=== PATIENT | female | born 1990 | race Caucasian/White ===

== ENCOUNTER 2016-08-08 17:11 | Emergency (ER) | payer MEDICAID, OTHER ==
[2016-08-08 17:11] VITALS: BMI 36.1
[2016-08-08 17:37] VITALS: RESP 20; O2SAT 100
[2016-08-08] MEDS ORDERED: Sodium Chloride 0.9% 1,000 ML IV ONE (19:06)
[2016-08-08] MEDS ORDERED: Sodium Chloride 0.9% 1,000 ML ONE (19:23)
[2016-08-08 19:25] LABS: RBC URINE 1223 /hpf (0-3); URINE BACTERIA RARE (<OCC); URINE BILIRUBIN NEGATIVE (NEGATIVE); URINE BLOOD 3+ (NEGATIVE); URINE COLOR Yellow (YELLOW); URINE GLUCOSE (UA) NORMAL (Normal); URINE KETONE NEGATIVE (NEGATIVE); URINE LEUKOCYTE ESTERASE NEG Leu/uL (Negative); URINE PROTEIN 1+ mg/dL (NEGATIVE); URINE UROBILINOGEN NORMAL mg/dL (0.2-1.0); WBC URINE 4 /hpf (0-5)
[2016-08-08 19:25] LABS: BASO % 0.4 % (0.0-2.0); EOS # 0.1 K/uL (0.0-0.7); EOS % 0.9 % (0.0-4.0); HEMATOCRIT 30.2 % (34.0-47.0); LYMPH # 2.1 K/uL (1.0-4.3); LYMPH % 30.7 % (20.0-40.0); MEAN CELL VOLUME 71.2 fL (81.0-99.0); MEAN CORPUSCULAR HEMOGLOBIN 22.4 pg (27.0-31.0); MEAN CORPUSCULAR HGB CONC 31.5 g/dL (33.0-37.0); MEAN PLATELET VOLUME 8.5 fL (7.2-11.7); MONO # 0.3 K/uL (0.0-0.8); MONO % 4.2 % (0.0-10.0); RED CELL DISTRIBUTION WIDTH 17.3 % (11.5-14.5); WHITE BLOOD COUNT 6.9 K/uL (4.8-10.8)
[2016-08-08 19:32] LABS: CHLORIDE 100 mmol/L (98-107)
[2016-08-08 19:33] LABS: POTASSIUM 3.6 mmol/L (3.6-5.2); SODIUM 137 mmol/L (132-148)
[2016-08-08 19:35] LABS: GFR AFRICAN-AMERICAN > 60
[2016-08-08 19:36] LABS: ALKALINE PHOSPHATASE 69 U/L (38-126); ALT/SGPT 19 U/L (9-52); AST/SGOT 18 U/L (14-36); BILIRUBIN,TOTAL 0.5 mg/dL (0.2-1.3); BLOOD UREA NITROGEN 11 mg/dL (7-17); CALCIUM 8.7 mg/dl (8.6-10.4); CARBON DIOXIDE 26 mmol/L (22-30); GLUCOSE,RANDOM 95 mg/dL (65-105); TOTAL PROTEIN 8.1 g/dL (6.3-8.3)
--- NOTE | 2016-08-08 20:13 | C.PDOC ---
Time Seen by Provider: 08/08/16 18:49 Chief Complaint (Nursing): Abdominal Pain History Per: Patient Onset/Duration Of Symptoms: Days (3) Current Symptoms Are (Timing): Still Present Severity: Moderate Location Of Pain/Discomfort: Epigastric Radiation Of Pain To:: None Quality Of Discomfort: Unable To Describe, "Pain" Associated Symptoms: Nausea Exacerbating Factors: Food Alleviating Factors: None Last Bowel Movement: Yesterday Additional History Per: Prior Records Past Medical History Reviewed: Historical Data, Nursing Documentation, Vital Signs Vital Signs: Last Vital Signs Temp 98.5 F 08/08/16 17:32 Pulse 96 H 08/08/16 17:32 Resp 20 08/08/16 17:32 BP 116/79 08/08/16 17:32 Pulse Ox 100 08/08/16 17:32 - Medical History PMH: Anemia Other PMH: H. Pylori Surgical History: No Surg Hx Family History: States: Unknown Family Hx - Social History Hx Alcohol Use: No Hx Substance Use: No - Immunization History Hx Tetanus Toxoid Vaccination: No Hx Influenza Vaccination: Yes Hx Pneumococcal Vaccination: No Review Of Systems Except As Marked, All Systems Reviewed And Found Negative. Constitutional: Negative for: Fever, Weakness Cardiovascular: Negative for: Chest Pain Respiratory: Negative for: Shortness of Breath Gastrointestinal: Positive for: Nausea, Abdominal Pain. Negative for: Vomiting , Melena, Hematochezia, Hematemesis Genitourinary: Positive for: Vaginal Bleeding (Pt is currently having her menstrual period) Musculoskeletal: Negative for: Neck Pain, Back Pain Skin: Negative for: Rash Neurological: Positive for: Headache. Negative for: Weakness, Numbness, Seizures, Altered Mental Status Physical Exam - Physical Exam Appears: Non-toxic, No Acute Distress Skin: Normal Color, Warm, Dry, No Rash Head: Atraumatic, Normacephalic Eye(s): bilateral: PERRL, EOMI Oral Mucosa: Moist Neck: Normal ROM, Supple Cardiovascular: Rhythm Regular Respiratory: Normal Breath Sounds, No Accessory Muscle Use Gastrointestinal/Abdominal: Soft, Tenderness (mild epigastric), No Distention, No Guarding, No Rebound Back: No CVA Tenderness Extremity: Normal ROM Neurological/Psych: Oriented x3, Normal Motor, Normal Sensation ED Course And Treatment - Laboratory Results Result Diagrams: 08/08/16 19:21 08/08/16 19:21 Lab Interpretation: No Acute Changes Urine POC: Negative O2 Sat by Pulse Oximetry: 100 Pulse Ox Interpretation: Normal Progress - Interventions Interventions:: Observation, Intravenous fluid - Medications Administered Intravenous: Antiemetic, H-2 mark - Data Reviewed Data Reviewed: Lab, Old records - Patient Status Patient status: Mostly improved - Continuity of Care Discussed patient case with:: Patient, ED Nurse - Patient Plan Patient Plan: Discharge, F/U with PCP, Continue present meds Disposition Counseled Patient/Family Regarding: Studies Performed, Diagnosis, Need For Followup, Rx Given - Disposition Referrals: Miranda Paulino [Staff Provider] - Disposition: HOME/ ROUTINE Disposition Time: 20:18 Condition: IMPROVED Additional Instructions: Follow up with your doctor for further evaluation and treatment. Return to the ER if you develop vomiting, fever, bloody or black stools, worsening of symptoms or if you have any other concerns. Prescriptions: Metoclopramide [Reglan] 5 mg PO TID PRN #30 tab PRN Reason: Nausea/Vomiting Instructions: Gastritis (ED) Print Language: YEMENI - Clinical Impression Clinical Impression: Epigastric abdominal pain
[2016-08-08 20:45] VITALS: BP 100/67; PULSE 71; TEMP 98.4
== END 2016-08-08 20:45 | disposition home or self-care (01) ==
LOC: C.ER 17:11
DX: R10.13 Epigastric pain (principal)
CPT/HCPCS: 80053; 81001; 83690; 84703; 85025; 96361; 96374; 96375; 99284; J2765; J7040

== ENCOUNTER 2016-08-19 09:54 | Emergency (ER) | payer MEDICAID ==
[2016-08-19 09:55] VITALS: BMI 36.1
[2016-08-19 10:00] VITALS: O2SAT 100
--- NOTE | 2016-08-19 10:09 | C.PDOC ---
History Of Present Illness 26 y/o female presents to ED with complaints of constant epigastric abdominal pain and nausea for 2 days . Patient states recently seen by GI who diagnosed her with H.Pylori and was given antibiotics (Flagyl and Clarithromycin). Antibiotics have given rise to loose stool according to patient. Patient has taking Omeprazole, but no relief. Patient denies fever, blood in stool or urinary symptoms. No other complaints at this time. Time Seen by Provider: 08/19/16 10:15 Chief Complaint (Nursing): GI Problem History Per: Patient History/Exam Limitations: no limitations Onset/Duration Of Symptoms: Days Current Symptoms Are (Timing): Still Present Past Medical History Reviewed: Historical Data, Nursing Documentation, Vital Signs Vital Signs: Last Vital Signs Temp 97.9 F 08/19/16 11:40 Pulse 82 08/19/16 11:40 Resp 18 08/19/16 11:40 BP 106/67 08/19/16 11:40 Pulse Ox 100 08/19/16 11:40 - Medical History PMH: Anemia, Gastritis Family History: States: Unknown Family Hx - Social History Hx Alcohol Use: No Hx Substance Use: No - Immunization History Hx Tetanus Toxoid Vaccination: No Hx Influenza Vaccination: Yes Hx Pneumococcal Vaccination: No Review Of Systems Constitutional: Negative for: Fever, Chills Cardiovascular: Negative for: Chest Pain Gastrointestinal: Positive for: Nausea, Abdominal Pain. Negative for: Vomiting , Diarrhea Genitourinary: Negative for: Dysuria Neurological: Negative for: Weakness Physical Exam - Physical Exam Appears: Non-toxic, No Acute Distress Skin: Normal Color, Warm Head: Atraumatic, Normacephalic Eye(s): bilateral: Normal Inspection, EOMI Oral Mucosa: Moist Neck: Normal ROM Chest: Symmetrical Cardiovascular: Rhythm Regular Respiratory: Normal Breath Sounds, No Rales, No Rhonchi, No Wheezing Gastrointestinal/Abdominal: Bowel Sounds (active), Soft, Tenderness (Epigastric tenderness), No Mass, No Distention, No Guarding, No Rebound Back: Normal Inspection, No CVA Tenderness Extremity: Normal ROM Neurological/Psych: Oriented x3, Normal Speech Gait: Steady ED Course And Treatment - Laboratory Results Result Diagrams: 08/19/16 10:40 08/19/16 10:40 Lab Interpretation: No Changes Compared To Prior Results O2 Sat by Pulse Oximetry: 100 (Room air ) Pulse Ox Interpretation: Normal Medical Decision Making Medical Decision Making: Impression: epigastric abdominal pain likely gastritis from H.pylori, patient currently on antibiotics Plan: * Labs * IV NS Prior record reviewed, patient recently seen 08/08/16 for abdominal pain with normal labwork and discharged home. Progress: Labs reviewed with no acute changes seen from prior visit Upon reevaluation patient reports pain has much improved. Discuss with patient dietary changes and can give new Rx Recommend follow up with GI next week Disposition Counseled Patient/Family Regarding: Diagnosis, Need For Followup, Rx Given - Disposition Referrals: Steven Navarro MD [Medical Doctor] - Disposition: HOME/ ROUTINE Disposition Time: 11:45 Condition: GOOD Additional Instructions: Contine con antibiticos y tome medicamentos para el dolor segn sea necesario Realice un seguimiento con bird mariano Navarro para tim evaluacin posterior Prescriptions: Dicyclomine [Bentyl] 10 mg PO QID #20 cap Instructions: Helicobacter Pylori (ED) Print Language: YEMENI - POA Present On Arrival: None - Clinical Impression Clinical Impression: Epigastric abdominal pain, H. 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 - Scribe Statement The provider has reviewed the documentation as recorded by the Cecilia Ni All medical record entries made by the Cecilia were at my direction and personally dictated by me. I have reviewed the chart and agree that the record accurately reflects my personal performance of the history, physical exam, medical decision making, and the department course for this patient. I have also personally directed, reviewed, and agree with the discharge instructions and disposition.
[2016-08-19] MEDS ORDERED: Sodium Chloride 0.9% 1,000 ML IV ONE (10:23)
[2016-08-19] MEDS ORDERED: Sodium Chloride 0.9% 1,000 ML ONE (10:32)
[2016-08-19 10:47] LABS: BASO % 0.6 % (0.0-2.0); EOS # 0.1 K/uL (0.0-0.7); EOS % 1.9 % (0.0-4.0); HEMATOCRIT 30.4 % (34.0-47.0); LYMPH # 1.3 K/uL (1.0-4.3); LYMPH % 24.5 % (20.0-40.0); MEAN CELL VOLUME 70.9 fL (81.0-99.0); MEAN CORPUSCULAR HEMOGLOBIN 22.2 pg (27.0-31.0); MEAN CORPUSCULAR HGB CONC 31.3 g/dL (33.0-37.0); MEAN PLATELET VOLUME 8.8 fL (7.2-11.7); MONO # 0.3 K/uL (0.0-0.8); MONO % 5.6 % (0.0-10.0); NRBC % 0.1 % (0.0-2.0); RED CELL DISTRIBUTION WIDTH 16.7 % (11.5-14.5); WHITE BLOOD COUNT 5.3 K/uL (4.8-10.8)
[2016-08-19 10:56] LABS: CHLORIDE 102 mmol/L (98-107); SODIUM 139 mmol/L (132-148)
[2016-08-19 10:58] LABS: GFR AFRICAN-AMERICAN > 60
[2016-08-19 10:59] LABS: ALKALINE PHOSPHATASE 63 U/L (38-126); ALT/SGPT 19 U/L (9-52); AST/SGOT 19 U/L (14-36); BILIRUBIN,TOTAL 0.5 mg/dL (0.2-1.3); BLOOD UREA NITROGEN 8 mg/dL (7-17); CALCIUM 8.3 mg/dl (8.6-10.4); CARBON DIOXIDE 25 mmol/L (22-30); GLUCOSE,RANDOM 90 mg/dL (65-105); RBC URINE 1 /hpf (0-3); TOTAL PROTEIN 7.4 g/dL (6.3-8.3); URINE BILIRUBIN NEGATIVE (NEGATIVE); URINE BLOOD NEGATIVE (NEGATIVE); URINE COLOR Yellow (YELLOW); URINE GLUCOSE (UA) NORMAL (Normal); URINE KETONE NEGATIVE (NEGATIVE); URINE LEUKOCYTE ESTERASE 1+ Leu/uL (Negative); URINE PROTEIN NEGATIVE (NEGATIVE); URINE UROBILINOGEN NORMAL mg/dL (0.2-1.0); WBC URINE 4 /hpf (0-5)
[2016-08-19 11:46] VITALS: BP 106/67; PULSE 82; RESP 18; TEMP 97.9
== END 2016-08-19 11:48 | disposition home or self-care (01) ==
LOC: C.ER 09:54
DX: R10.13 Epigastric pain (principal); B96.81 Helicobacter pylori [H. pylori] as the cause of diseases classified elsewhere
CPT/HCPCS: 80053; 81001; 83690; 85025; 96361; 96374; 96375; 99283; J1885; J2405; J7040

== ENCOUNTER 2017-02-26 21:30 | Emergency (ER) | payer MEDICAID ==
[2017-02-26 21:31] VITALS: BMI 36.1
[2017-02-26 21:42] VITALS: BP 132/68; PULSE 100; TEMP 98.3; O2SAT 100
[2017-02-26] MEDS ORDERED: Apap-Butalbital-Caffeine 325-50-40mg Tab PO STA (22:15)
[2017-02-26] MEDS ORDERED: Apap-Butalbital-Caffeine 325-50-40mg Tab ONE (22:22)
--- NOTE | 2017-02-26 23:23 | CT ---
EXAM: CT Head Without Intravenous Contrast CLINICAL HISTORY: 26 years old, female; Pain; Headache; Headache not specified TECHNIQUE: Axial computed tomography images of the head/brain without intravenous contrast. All CT scans at this facility use one or more dose reduction techniques, viz.: automated exposure control; ma/kV adjustment per patient size (including targeted exams where dose is matched to indication; i.e. head); or iterative reconstruction technique. Coronal and sagittal reformatted images were created and reviewed. COMPARISON: No relevant prior studies available. FINDINGS: Brain: No hemorrhage. No significant white matter disease. No edema. Ventricles: No hydrocephalus. Bones: Skull is intact. Soft tissues: No acute abnormality as visualized. Sinuses: Moderately severe ethmoid/sphenoid sinus disease. Underpneumatized frontal sinus, opacified on the left and. Maxillary sinuses only partially visualized. Mastoid air cells: No mastoid effusion. IMPRESSION: No CT evidence of acute intracranial abnormality. Moderately severe ethmoid/sphenoid sinus disease.
--- NOTE | 2017-02-26 23:36 | C.PDOC ---
History Of Present Illness 26 year old female presents to the ER with a complaint of a frontal headache radiating to the posterior head, neck, and upper back area for the past 4 days. Patient states she has been taking ibuprofen and tylenol with no relief. Denies fever, dizziness, nausea, or vomiting. Time Seen by Provider: 02/26/17 21:48 Chief Complaint (Nursing): Flu-like Symptoms History Per: Patient History/Exam Limitations: no limitations Onset/Duration Of Symptoms: Days Current Symptoms Are (Timing): Still Present Location Of Pain: Headache Sick Contacts (Context): None Associated Symptoms: Neck Pain. denies: Fever, Nausea, Vomiting Recent travel outside of the [place]: No Past Medical History Reviewed: Historical Data, Nursing Documentation, Vital Signs Vital Signs: Last Vital Signs Temp 98.3 F 02/26/17 21:34 Pulse 100 H 02/26/17 21:34 Resp 20 02/26/17 23:43 BP 132/68 02/26/17 21:34 Pulse Ox 100 02/27/17 02:35 - Medical History PMH: Anemia, Gastritis Surgical History: No Surg Hx Family History: States: Unknown Family Hx - Social History Hx Alcohol Use: No Hx Substance Use: No - Immunization History Hx Tetanus Toxoid Vaccination: No Hx Influenza Vaccination: Yes Hx Pneumococcal Vaccination: No Review Of Systems Constitutional: Negative for: Fever, Chills Gastrointestinal: Negative for: Nausea, Vomiting Musculoskeletal: Positive for: Neck Pain, Back Pain Neurological: Positive for: Headache. Negative for: Dizziness Physical Exam - Physical Exam Appears: Non-toxic, No Acute Distress Skin: Normal Color, Warm, Dry Head: Atraumatic, Normacephalic Eye(s): bilateral: Normal Inspection, PERRL, EOMI Oral Mucosa: Moist Throat: Normal, No Erythema Neck: No Midline Cervical Tenderness, Paracervical Tenderness, Supple Back: Paraspinal Tenderness (Sub scapular) Extremity: Normal ROM (x4) Neurological/Psych: Oriented x3, Normal Speech, Normal Motor, Normal Sensation Gait: Steady ED Course And Treatment O2 Sat by Pulse Oximetry: 100 (Room air) Pulse Ox Interpretation: Normal - CT Scan/US CT Head Other Rad Studies (CT/US): Read By Radiologist, Radiology Report Reviewed CT/US Interpretation: IMPRESSION: No CT evidence of acute intracranial abnormality. Moderately severe ethmoid/sphenoid sinus disease. Progress Note: CT head ordered, results negative. Fioricet and flexeril administered. On reassessment, patient is resting comfortably and pain has improved. Patient has no neurologic deficit, photophobia, rash, fever, or nuchal rigidity. Patient was instructed to follow up with PMD in 1-2 days. Disposition Counseled Patient/Family Regarding: Diagnosis, Need For Followup, Rx Given - Disposition Disposition: HOME/ ROUTINE Disposition Time: 23:35 Condition: STABLE Additional Instructions: Please take meds as directed Follow up with PMD Return to ER if worse Prescriptions: Cetirizine HCl [Zyrtec] 10 mg PO DAILY #20 capsule Cyclobenzaprine [Cyclobenzaprine HCl] 10 mg PO HS #7 tab Mometasone Furoate [Nasonex] 2 spray NS DAILY #1 bottle Naproxen [Naprosyn] 1 tab PO BID PRN #25 tab PRN Reason: Pain Instructions: Sinusitis (ED), Acute Headache (ED) Forms: [employer] (Cambodian) Print Language: MARSHALLESE - Clinical Impression Clinical Impression: Headache, Sinusitis - 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 - Scribe Statement The provider has reviewed the documentation as recorded by the Scribe Julien Engle All medical record entries made by the Flaviaibnikki were at my direction and personally dictated by me. I have reviewed the chart and agree that the record accurately reflects my personal performance of the history, physical exam, medical decision making, and the department course for this patient. I have also personally directed, reviewed, and agree with the discharge instructions and disposition.
[2017-02-26 23:43] VITALS: RESP 20
== END 2017-02-26 23:43 | disposition home or self-care (01) ==
LOC: C.ER 21:30
DX: R51 Headache (principal); J32.9 Chronic sinusitis, unspecified

== ENCOUNTER 2017-09-13 20:02 | Emergency (ER) | payer MEDICAID ==
[2017-09-13 20:05] VITALS: BMI 36.1
[2017-09-13 20:19] VITALS: BP 104/73; PULSE 99; RESP 20; TEMP 98.7; O2SAT 98
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
== END 2017-09-13 21:27 | disposition home or self-care (01) ==
LOC: C.ER 20:02
DX: S29.012A Strain of muscle and tendon of back wall of thorax, initial encounter (principal); V49.50XA Passenger injured in collision with unspecified motor vehicles in traffic accident, initial encounter
CPT/HCPCS: 96372; 99283; J1885

== ENCOUNTER 2018-05-14 01:50 | Emergency (ER) | payer MEDICAID ==
[2018-05-14 01:51] VITALS: BMI 36.1
[2018-05-14 02:06] VITALS: TEMP 97.9; O2SAT 99
--- NOTE | 2018-05-14 02:35 | C.PDOC ---
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 Denies SOB, known allergens, new foods, or new product use. Time Seen by Provider: 05/14/18 02:07 Chief Complaint (Nursing): Allergic Reaction History Per: Patient History/Exam Limitations: no limitations Onset/Duration Of Symptoms: Hrs, Sudden Onset Current Symptoms Are (Timing): Still Present Possible Cause: Unknown Associated Symptoms: Skin Rash Recent travel outside of the [place]: No Past Medical History Reviewed: Historical Data, Nursing Documentation, Vital Signs Vital Signs: Last Vital Signs Temp 97.9 F 05/14/18 01:55 Pulse 88 05/14/18 01:55 Resp 22 05/14/18 01:55 BP 125/85 05/14/18 01:55 Pulse Ox 99 05/14/18 01:55 - Medical History PMH: Gastritis Denies: Anemia Family History: States: Unknown Family Hx - Social History Hx Alcohol Use: No Hx Substance Use: No - Immunization History Hx Tetanus Toxoid Vaccination: No Hx Influenza Vaccination: Yes Hx Pneumococcal Vaccination: No Review Of Systems Except As Marked, All Systems Reviewed And Found Negative. ENT: Negative for: Mouth Swelling, Throat Swelling Respiratory: Negative for: Shortness of Breath Skin: Positive for: Rash Physical Exam - Physical Exam Appears: Non-toxic Skin: Warm, Dry, Rash (Scattered hives to hands) Head: Atraumatic, Normacephalic Eye(s): bilateral: PERRL, EOMI, Other (Angioedema of eyelids) Oral Mucosa: Moist Throat: Normal, No Other (Swelling) Neck: Normal, Supple Chest: Symmetrical, No Tenderness Cardiovascular: Rhythm Regular Respiratory: Normal Breath Sounds, No Accessory Muscle Use, No Rales, No Rhonchi, No Stridor, No Wheezing Gastrointestinal/Abdominal: Soft, No Tenderness Neurological/Psych: Oriented x3, Normal Speech ED Course And Treatment O2 Sat by Pulse Oximetry: 99 Disposition Counseled Patient/Family Regarding: Diagnosis, Need For Followup, Rx Given - Disposition Referrals: [facility] [Outside] [facility] [Outside] Disposition: HOME/ ROUTINE Disposition Time: 03:30 Condition: IMPROVED Prescriptions: DiphenhydrAMINE [Benadryl] 50 mg PO TID PRN #30 cap PRN Reason: Itching / Pruritus Famotidine [Pepcid AC] 10 mg PO DAILY #4 tablet predniSONE [Prednisone] 60 mg PO DAILY #12 tab Instructions: Hives (DC) Forms: [employer] (Estonian), Work Excuse Print Language: SLOVAK - Clinical Impression Clinical Impression: Allergic urticaria - Scribe Statement The provider has reviewed the documentation as recorded by the Scribnikki Engle All medical record entries made by the Flaviaibe were at my direction and perso aditi dictated by me. I have reviewed the chart and agree that the record accurately reflects my personal performance of the history, physical exam, medical decision making, and the department course for this patient. I have also personally directed, reviewed, and agree with the discharge instructions and disposition.
[2018-05-14 03:57] VITALS: BP 130/80; PULSE 80; RESP 14
== END 2018-05-14 03:15 | disposition home or self-care (01) ==
LOC: C.ER 01:50
DX: L50.0 Allergic urticaria (principal)